=== PATIENT | male | born 1970 | race Caucasian/White ===

== ENCOUNTER 2020-02-17 15:18 | Emergency (ER) | payer SELFPAY ==
--- NOTE | 2020-02-17 15:26 | PDOC ---
Rapid Medical Evaluation Chief Complaint: Pain, Acute Time Seen by Provider: 02/17/20 15:22 Medical Evaluation: Allergies Allergy/AdvReac Type Severity Reaction Status Date / Time No Known Drug Allergies Allergy Verified 12/02/15 17:06 02/17/20 15:24 CC: left testicular pain and swelling since sunday after lifting her Exam: left testicular swelling with tenderness Plan: u/s Discharge Disposition - Diagnosis Testicular swelling, left - Discharge Dispostion Condition at time of disposition: Good - Referrals - Patient Instructions - Post Discharge Activity
[2020-02-17 15:29] VITALS: BP 121/58; PULSE 88; TEMP 97.9; BMI 24.4
[2020-02-17] MEDS ORDERED: morphine CARPU-JECT 4 MG/1 ML DISP.SYRIN IVPUSH ONE (16:56)
[2020-02-17] MEDS ORDERED: ONDANSETRON 4 MG/2 ML VIAL IVPUSH ONE (16:56)
[2020-02-17] MEDS ORDERED: morphine SULFATE 4 MG/ML VIAL ONE (17:04)
[2020-02-17 17:24] LABS: BASO % 0.7 % (0-2.0); EOS % 2.5 % (0-4.5); HEMATOCRIT 44.3 % (35.4-49); HEMOGLOBIN 14.7 GM/dL (11.7-16.9); LYMPH % 26.3 % (8-40); MCH 30.1 pg (25.7-33.7); MCHC 33.1 g/dl (32.0-35.9); MEAN PLT VOLUME 8.6 fl (7.5-11.1); MONO % 7.2 % (3.8-10.2); NEUT % 63.3 % (42.8-82.8); PLATELET COUNT 237 K/MM3 (134-434); RBC 4.87 M/mm3 (4.00-5.60); WHITE BLOOD COUNT 11.9 K/mm3 (4.0-10.0)
[2020-02-17 17:31] LABS: INR 1.24 (0.83-1.09); PROTHROMBIN TIME (PATIENT) 14.7 SEC (9.7-13.0)
[2020-02-17 17:53] LABS: BILIRUBIN,TOTAL 0.8 mg/dL (0.2-1); BLOOD UREA NITROGEN 26.8 mg/dL (7-18); CALCIUM 9.3 mg/dL (8.5-10.1); CREATININE 1.3 mg/dL (0.55-1.3); POTASSIUM 4.4 mmol/L (3.5-5.1)
[2020-02-17 18:33] LABS: EPI CELLS 24 /uL (0-25.1); HYALINE CASTS 2 /uL (0-3.1); PH,URINE 5.5 (5.0-8.0); URINE APPEARANCE CLEAR; URINE BACTERIA 22 /uL (0-1359); URINE BILIRUBIN 1+ (NEGATIVE); URINE COLOR DK YELLOW; URINE GLUCOSE (UA) NEGATIVE (NEGATIVE); URINE KETONE 1+ (NEGATIVE); URINE LEUK ESTERASE 1+ (NEGATIVE); URINE NITRITE NEGATIVE (NEGATIVE); URINE PROTEIN TRACE (NEGATIVE); URINE RBC 12 /uL (0-23.9); URINE WBC 79 /uL (0-25.8)
[2020-02-17] MEDS ORDERED: CEFTRIAXONE 1 GM in DEXTROSE 5%-WATER - 100 ML IVPB ONE (18:36)
[2020-02-17] MEDS ORDERED: CEFTRIAXONE 1 GM/50 ML BAG ONE (18:40)
--- NOTE | 2020-02-17 18:41 | PDOC ---
History of Present Illness - General Chief Complaint: Pain, Acute Stated Complaint: PAIN Time Seen by Provider: 02/17/20 15:22 - History of Present Illness Initial Comments: 02/17/20 18:52 49-year-old male with developing left testicular pain and swelling x2 days presents for evaluation of pain. Seen by his primary care physician placed on a course of Augmentin today which she did not start he complains of increasing testicle pain. No systemic symptoms or dysuria Past History - Medical History Allergies/Adverse Reactions: Allergies Allergy/AdvReac Type Severity Reaction Status Date / Time No Known Drug Allergies Allergy Verified 12/02/15 17:06 Home Medications: Ambulatory Orders Oxycodone HCl/Acetaminophen [Percocet 5-325 mg Tablet] 1 - 2 tab PO Q4H #20 tablet MDD 6 12/03/15 Levofloxacin [Levaquin] 750 mg PO DAILY #14 tablet 02/17/20 Cardiac Disorders: Yes (ANGIOPLASTY 2004, TETRALOGY OF FALLOT) COPD: No - Surgical History Cardiac Surgery: Yes (3YRS OLD (TETRALOGY OF FALLOT)) - Immunization History Immunization Up to Date: No - Psycho-Social/Smoking History Smoking History: Never smoked Have you smoked in the past 12 months: No Information on smoking cessation initiated: No - Substance Abuse Hx (Audit-C & DAST Scrn) How often the patient has a drink containing alcohol: Never Score: In Men: 4 or > Positive; In Women: 3 or > Positive: 0 Screen Result (Pos requires Nsg. Audit-10AR): Negative In the last yr the pt used illegal drug/Rx for NonMed reason: No Score: Yes response is considered Positive: 0 Screen Result (Positive result requires Nsg. DAST-10): Negative Review of Systems - Review of Systems Constitutional: No: Fever : Yes: See HPI, Pain, Testicular Mass, Testicular Swelling, Lesions, Testicular Pain. No: Dysuria *Physical Exam - Vital Signs Last Vital Signs Temp Pulse Resp BP Pulse Ox 97.9 F 88 18 121/58 L 98 02/17/20 15:23 02/17/20 15:23 02/17/20 15:23 02/17/20 15:23 02/17/20 15:23 - Physical Exam 02/17/20 18:53 Left testicular tenderness with some swelling about the epididymis.External genitalia is otherwise normal. ED Treatment Course - LABORATORY CBC & Chemistry Diagram: 02/17/20 17:00 02/17/20 17:00 - ADDITIONAL ORDERS Additional order review: Laboratory Results 02/17/20 02/17/20 02/17/20 18:00 17:00 17:00 PT with INR 14.70 H INR 1.24 H Sodium 138 Potassium 4.4 Chloride 103 Carbon Dioxide 28 Anion Gap 7 L BUN 26.8 H Creatinine 1.3 Est GFR (CKD-EPI)AfAm 73.74 Est GFR (CKD-EPI)NonAf 63.62 Random Glucose 106 Calcium 9.3 Total Bilirubin 0.8 AST 15 ALT 21 Alkaline Phosphatase 87 Total Protein 8.0 Albumin 4.0 Urine Color Dk yellow Urine Appearance Clear Urine pH 5.5 Ur Specific [place] 1.033 Urine Protein Trace Urine Glucose (UA) Negative Urine Ketones 1+ H Urine Blood Negative Urine Nitrite Negative Urine Bilirubin 1+ H Urine Urobilinogen 2.0 Ur Leukocyte Esterase 1+ H Urine WBC (Auto) 79 Urine RBC (Auto) 12 Urine Casts (Auto) 2 U Epithel Cells (Auto) 24 Urine Bacteria (Auto) 22 02/17/20 17:00 RBC 4.87 MCV 91.0 MCHC 33.1 RDW 13.0 MPV 8.6 Neutrophils % 63.3 D Lymphocytes % 26.3 D Monocytes % 7.2 Eosinophils % 2.5 Basophils % 0.7 - Medications Given in the ED: ED Medications Discontinued Medications Generic Name Dose Route Start Last Admin Trade Name Freq PRN Reason Stop Dose Admin Morphine Sulfate 4 mg 02/17/20 16:56 02/17/20 17:00 Morphine Injection - IVPUSH 02/17/20 16:57 4 mg ONCE ONE Administration Ondansetron HCl 4 mg 02/17/20 16:56 02/17/20 17:00 Zofran Injection IVPUSH 02/17/20 16:57 4 mg ONCE ONE Administration Medical Decision Making - Medical Decision Making 02/17/20 18:40 Ultrasound reviewed along with UA urology called in consultation 02/17/20 18:[address] Zhou from urology. IV ceftriaxone in the emergency room 1 g 14 days of Levaquin in addition to the Augmentin at home. Follow-up with urology in 1 to 2 days. Urology was informed of ultrasound results over the phone I have reviewed the pathophysiology with the patient. They are in agreement with the treatment plan all questions were answered to their satisfaction. Understanding for follow-up without fail was also conveyed to the patient. Drew toth they are in agreement. Discharge - Discharge Information Problems reviewed: Yes Clinical Impression/Diagnosis: Testicular swelling, left, Epididymitis Condition: Stable Disposition: HOME - Admission No - Additional Discharge Information Prescriptions: Levofloxacin [Levaquin] 750 mg PO DAILY #14 tablet - Follow up/Referral Referrals: Iraj Whitaker MD [Primary Care Provider] - Ryder Whitaker MD [Staff Physician] - - Patient Discharge Instructions Patient Printed Discharge Instructions: DI for Epididymitis Additional Instructions: Please take and finish all the antibiotics as directed and return to the emergency room should symptoms worsen. Without fail follow-up with urology in 1 to 2 days as we discussed. Tylenol and Motrin as directed for pain. - Post Discharge Activity
== END 2020-02-17 19:40 | disposition home or self-care (01) ==
LOC: JER 15:18
PROC: 3E033GC Introduction of Other Therapeutic Substance into Peripheral Vein, Percutaneous Approach (ICD-10-PCS; principal; 2020-02-17)
DX: N45.1 Epididymitis (principal)
CPT/HCPCS: 36415; 76870-TC; 80053; 81003; 85025; 85610; 87086; 99284-25